=== PATIENT | female | born 1990 | race Caucasian/White ===

== ENCOUNTER 2018-03-12 11:16 | Inpatient (IN) | payer BC ==
--- OUTSIDE RECORDS SUMMARY | 2018-03-12 11:23 | XMS REPORT ---
:1990 Author Organization eClinicalWorks Care Team Providers Name Role Phone Mehdi Nickerson Provider Role Unavailable Allergies No Known Allergies Problems Problem Type Condition Code Onset Dates Condition Status Problem Uterine size-date discrepancy in O26.843 Active third trimester Assessment Encounter for supervision of normal Z34.03 Active first in third trimester Problem Encounter for supervision of normal Z34.03 Active first in third trimester Medications Medication Code Code Instructions Start End Status Dosage System Date Date Ferralet 90 [facility] [id number] 90-1 MG Orally Active 1 tablet Once a day CitraNatal 90 ND [id number] 90-1 & 300 MG Active as directed DHA Orally 1 Results No Known Results Summary Purpose eClinicalWorks Submission
--- OUTSIDE RECORDS SUMMARY | 2018-03-12 11:23 | XMS REPORT ---
[...] Status Dosage System Date Date Ferralet 90 [facility] [id number] 90-1 MG Orally Active 1 tablet Once a day CitraNatal 90 ND [id number] 90-1 & 300 MG Active as directed DHA Orally 1 Results No Known Results Immunizations Vaccine Administration Date TDAP > 7 Years-Adacel February 21, 2018 Summary Purpose eClinicalWorks Submission
--- OUTSIDE RECORDS SUMMARY | 2018-03-12 11:23 | XMS REPORT ---
[...] Start End Status Dosage System Date Date CitraNatal 90 [facility] [id number] 90-1 & 300 MG Active as directed DHA Orally 1 Ferralet 90 [facility] [id number] 90-1 MG Orally Active 1 tablet Once a day Results No Known Results Summary Purpose eClinicalWorks Submission
[2018-03-12] MEDS ORDERED: Ringers Lactate 1,000 ML IV ONE (12:03)
[2018-03-12] MEDS ORDERED: METHYLERGONOVINE 0.2MG/ML AMP IM PRN (12:08)
[2018-03-12] MEDS ORDERED: PROMETHAZINE 25 MG/ML VIAL IV PRN (12:08)
[2018-03-12] MEDS ORDERED: Ringers Lactate 1,000 ML IV PRN (12:08)
[2018-03-12] MEDS ORDERED: CARBOPROST TROME 250 MCG/ML IM PRN (12:08)
[2018-03-12] MEDS ORDERED: BUTORPHANOL 1 MG/ML INJ IV PRN (12:08)
[2018-03-12 12:45] LABS: RPR Titer ND
[2018-03-12 12:56] LABS: Urine Appearance CLEAR; Urine Bilirubin NEGATIVE (NEG); Urine Blood 3+ (NEG); Urine Color YELLOW; Urine Glucose NEGATIVE (NEG); Urine Protein NEGATIVE (NEG); Urine Specific Gravity 1.015 (1.005-1.030); Urine Urobilinogen 0.2 mg/dL (0.2-1.0); Urine pH 7.5 (5.0-7.0)
[2018-03-12] MEDS ORDERED: Ringers Lactate 1,000 ML IV SCH (13:00)
[2018-03-12 13:01] LABS: Absolute Lymphocytes (CBC) 1.7 K/uL (0.7-4.9); Absolute Monocytes 0.6 K/uL (0.1-1.3); Basophils % 0.2 % (0-1.3); Eosinophils % 0.2 % (0-4.4); Hematocrit 32.6 % (36.0-45.0); Lymphocytes % 13.7 % (15.3-44.8); MCH 30.4 pg (27.0-35.0); MPV 9.6 fL (7.6-11.3); Monocytes % 5.2 % (3.3-12.3); RBC Red Blood Cell Count 3.59 M/uL (3.86-4.86); Urine Microscopic Reflex ORDER UMIC
[2018-03-12] MEDS ORDERED: PROMETHAZINE 25 MG/ML VIAL ONE (13:07)
[2018-03-12] MEDS ORDERED: BUTORPHANOL 1 MG/ML INJ ONE (13:07)
[2018-03-12 13:10] LABS: Urine Bacteria <20 /HPF (<20); Urine Culture Reflex Order NOT NEEDED
[2018-03-12] MEDS ORDERED: OXYTOCIN/LR 20 UNIT/1,000 ML BAG IV SCH (14:00)
[2018-03-12] MEDS ORDERED: LIDOCAINE 2% INJ, 20 mL 20 ML ONE (15:02)
[2018-03-12] MEDS ORDERED: LIDOCAINE 1% 20 ML MDV ONE (16:34)
[2018-03-12] MEDS ORDERED: BISACODYL 10 MG RECTAL SUPP RECT PRN (17:01)
[2018-03-12] MEDS ORDERED: DOCUSATE NA/SENNA CONC 1 TAB PO PRN (17:01)
[2018-03-12] MEDS ORDERED: IBUPROFEN 200 MG TAB PO PRN (17:01)
[2018-03-12] MEDS ORDERED: ACETAMINOPHEN 500 MG TAB PO PRN (17:01)
[2018-03-12] MEDS ORDERED: ONDANSETRON 4 MG (ODT) TAB PO PRN (17:01)
[2018-03-12] MEDS ORDERED: METHYLERGONOVINE 0.2 MG TAB PO PRN (17:01)
[2018-03-12] MEDS ORDERED: Oxycodone HCl/Acetaminophen 1 TAB TAB PO PRN ×2 (17:01)
[2018-03-12 17:33] VITALS: BMI 24.4
--- NOTE | 2018-03-12 22:55 | P.OBGYNHP ---
Certification for Inpatient Patient admitted to: Inpatient With expected LOS: <2 Midnights Patient will require the following post-hospital care: None Practitioner: I am a practitioner with admitting privileges, knowledge of patient current condition, hospital course, and medical plan of care. Services: Services provided to patient in accordance with Admission requirements found in Title 42 Section 412.3 of the Code of Federal Regulations Patient History Date of Service: 03/19/18 Reason for admission: LABOR History of Present Illness: 28 y/o at 38 weeks and 4 days gestation presents in labor. She was seen previous in the morning and was not in labor at that time. She now presents with increasing pain, further dilation and consistent contractions. Allergies No Known Allergies Allergy (Unverified 03/20/17 03:24) Home Medications: Iron Carb,Gl/FA/B12/C/Docusate [Ferralet 90 Tablet] 1 tab PO DAILY 03/12/18 Pnv72/Iron,Carb&Glu/FA/Dss/Dha [Citranatal 90 Dha Combo Pack] 1 tab PO DAILY - Past Medical/Surgical History Diabetic: No Past Medical History: Reviewed- Non-Contributory Past Surgical History: Reviewed- Non-Contributory - Family History Family History: Reviewed- Non-Contributory - Social History Smoking Status: Former smoker Alcohol use: No CD- Drugs: No Caffeine use: Yes Place of Residence: Home Review of Systems 10-point ROS is otherwise unremarkable Physical Examination - Vital Signs Temperature: 97.8 F Blood Pressure: 105/57 Pulse: 89 Respirations: 18 - General General: Alert, Oriented x3, Moderate distress HEENT: Atraumatic Neck: Supple Respiratory: Normal air movement Cardiovascular: No edema, Normal pulses Capillary refill: <2 Seconds Breasts: Normal configuration, Normal contours, Symmetrical Gastrointestinal: Other (gravid) Musculoskeletal: No clubbing, No swelling, No contractures Integumentary: No rashes, No breakdown Neurological: Normal gait, Normal speech - Female Pelvic External genitalia: Normal Vagina: Normal, Empire, Moist Cervix: Normal, Dilation (6-7), Effacement (90%), station (-2) Uterus: Gravid Adnexa: Unable to evaluate - Obstetrics heart rate tracing: Category 2 Contractions: Frequency (every 2-4 minutes) Amniotic membrane: AROM (clear fluid) Laboratory Data (last 24 hrs) 03/12/18 12:08: WBC 12.3 H, Hgb 10.9 L, Hct 32.6 L, Plt Count 138 L Assessment and Plan - Plan 28 y/o [id number] 38 weeks 4 days gestation who presents in labor, GBS negative. Admit for management of labor. Patient declines epidural at this time. Discharge Plan: Home Plan to discharge in: 24 Hours - Advance Directives Does patient have a Living Will: No Does patient have a Durable POA for Healthcare: No
--- NOTE | 2018-03-12 23:04 | P.OP ---
Date of Service: 03/12/18 Findings and Operative Technique Patient delivered a viable female in cephalic presentation on 03/12/18 at 16:30. was delivered over a midline episiotomy via a vacuum assisted vaginal delivery in occiput posterior position. Once was delivered nose and mouth were suctioned with a suction bulb and cord was clamped and cut. Infant was placed on mother's abdomen for skin to skin bonding. Placenta was then delivered with gentle traction. Episiotomy was then repaired with a 2.0 and 3.0 vicryl in usual fashion. Fundus was firm. EBL was 300 cc. APGARS were 9/ 9. Weight was 6 lb 12 ounces. First stage of labor was 4 hours. Second stage was 1 hour and 6 minutes.
[2018-03-12 23:43] LABS: RPR (Rapid Plasma Reagin) NON-REACT (NON-REACT)
[2018-03-13 06:08] LABS: Absolute Monocytes 0.9 K/uL (0.1-1.3); Absolute Neutrophil 9.8 K/uL (1.8-8.0); Basophils % 0.4 % (0-1.3); Eosinophils % 0.3 % (0-4.4); Hematocrit 30.9 % (36.0-45.0); Lymphocytes % 21.9 % (15.3-44.8); MCH 30.2 pg (27.0-35.0); MCV 91.4 fL (80-100); MPV 9.2 fL (7.6-11.3); Monocytes % 6.7 % (3.3-12.3); RBC Red Blood Cell Count 3.39 M/uL (3.86-4.86)
[2018-03-15 03:43] LABS: HBsAG Nonreactive (Nonreactive)
[2018-03-19 15:53] VITALS: BP 105/57; TEMP 97.8
== END 2018-03-13 18:00 | disposition home or self-care (01) | DRG 775 ==
LOC: L&D 11:16 → 2ND-WC 12:01
PROVIDERS: ADMIT Student in an Organized Health Care Education/Training Program; ATTEND Student in an Organized Health Care Education/Training Program
PROC: 10D07Z6 Extraction of Products of Conception, Vacuum, Via Natural or Artificial Opening (ICD-10-PCS; principal; 2018-03-12)
PROC: 0W8NXZZ Division of Female Perineum, External Approach (ICD-10-PCS; 2018-03-12)
DX: O80 Encounter for full-term uncomplicated delivery (principal); Z3A.38 38 weeks gestation of pregnancy; Z37.0 Single live birth
CPT/HCPCS: 36415; 81003; 81015; 85025; 86592; 86901; 87340; 99218; J0595; J2210; J2550; J2590

== ENCOUNTER 2018-07-10 15:28 | Emergency (ER) | payer BC ==
--- OUTSIDE RECORDS SUMMARY | 2018-07-10 15:30 | XMS REPORT ---
[...] Status Dosage System Date Date Ferralet 90 [facility] [id number] 90-1 MG Orally Active 1 tablet Once a day CitraNatal 90 ND [id number] 90-1 & 300 MG Active as directed DHA Orally 1 Results No Known Results Summary Purpose eClinicalWorks Submission
--- OUTSIDE RECORDS SUMMARY | 2018-07-10 15:31 | XMS REPORT ---
[...] Status Dosage System Date Date CitraNatal 90 [facility] [id number] 90-1 & 300 MG Active as directed DHA Orally 1 Ferralet 90 [facility] [id number] 90-1 MG Orally Active 1 tablet Once a day Results No Known Results Summary Purpose eClinicalWorks Submission
--- OUTSIDE RECORDS SUMMARY | 2018-07-10 15:31 | XMS REPORT ---
:1990 Author Organization eClinicalWorks Care Team Providers Name Role Phone Mehdi Nickerson Provider Role Unavailable Allergies No Known Allergies Problems Problem Type Condition Code Onset Dates Condition Status Problem Uterine size-date discrepancy in O26.843 Active third trimester Problem Encounter for supervision of normal Z34.03 Active first in third trimester Medications No Known Medications Results No Known Results Summary Purpose eClinicalMiMedia Submission
--- OUTSIDE RECORDS SUMMARY | 2018-07-10 15:31 | XMS REPORT ---
[...] Dosage System Date Date Ferralet 90 [facility] [id number] 90-1 MG Orally Active 1 tablet Once a day CitraNatal 90 ND 03593035011 90-1 & 300 MG Active as directed DHA Orally 1 Results No Known Results Immunizations Vaccine Administration Date TDAP > 7 Years-Adacel February 21, 2018 Summary Purpose eClinicalWorks Submission
--- OUTSIDE RECORDS SUMMARY | 2018-07-10 15:31 | XMS REPORT ---
:1990 Author Organization eClinicalWorks Care Team Providers Name Role Phone Mehdi Nickerson Provider Role Unavailable Allergies No Known Allergies Problems Problem Type Condition Code Onset Dates Condition Status Problem Uterine size-date discrepancy in O26.843 Active third trimester Problem Encounter for supervision of normal Z34.03 Active first in third trimester Assessment Encounter for routine Z39.2 Active follow-up Medications Medication Code Code Instructions Start End Status Dosage System Date Date CitraNatal 90 ND [id number] 90-1 & 300 MG Active as directed DHA Orally 1 Ferralet 90 [facility] [id number] 90-1 MG Orally Active 1 tablet Once a day Results Name Result Date Reference Range Unit Abnormality Flag URINALYSIS AUTO W/O SCOPE (99722) ----NIT NEG 20180503 ----URO 0.2 20180503 ----PROTEIN NEG 20180503 ----pH 7.5 20180503 ----BLO NEG [id number] ----GLUCOSE NEG 20180503 ----ALCIDES NEG 20180503 ----BILIRUBIN NEG 20180503 ----KETONES NEG 20180503 ----SPECIFIC GRAVITY 1.020 20180503 Summary Purpose eClinicalWorks Submission
--- OUTSIDE RECORDS SUMMARY | 2018-07-10 15:31 | XMS REPORT ---
[...] Medications Results No Known Results Summary Purpose eClinicalTaking Point Submission
--- OUTSIDE RECORDS SUMMARY | 2018-07-10 15:31 | XMS REPORT ---
:1990 Author Organization eClinicalWorks Care Team Providers Name Role Phone Mehdi Nickerson Provider Role Unavailable Allergies, Adverse Reactions, Alerts Substance Reaction Event Type N.K.D.A. 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 [id number] 0.5 MG Orally Active 1 tablet at Once a day bedtime Ferralet [address] [facility] [id number] 90-1 MG Orally Active 1 tablet Once a day CitraNatal [address] [facility] [id number] 90-1 & 300 MG Active as directed DHA Orally 1 Results Name Result Date Reference Range Unit Abnormality Flag TEST URINE ----RESULTS neg [id number] URINALYSIS AUTO W/O SCOPE ([id number]) ----PROTEIN neg [id number] ----pH 6.5 20180523 ----NIT neg [id number] ----ALCIDES neg [id number] ----URO 0.2 20180523 ----SPECIFIC GRAVITY 1.020 20180523 ----BLO neg [id number] ----BILIRUBIN neg [id number] ----KETONES neg [id number] ----GLUCOSE neg [id number] Summary Purpose eClinicalWorks Submission
--- OUTSIDE RECORDS SUMMARY | 2018-07-10 15:31 | XMS REPORT ---
[...] Medications Results No Known Results Summary Purpose eClinicalAnzu Submission
--- OUTSIDE RECORDS SUMMARY | 2018-07-10 15:31 | XMS REPORT ---
[...] Medications Results No Known Results Summary Purpose eClinicalGuess Your Songs Submission
[2018-07-10 16:12] LABS: Absolute Lymphocytes (CBC) 2.4 K/uL (0.7-4.9); Absolute Monocytes 0.4 K/uL (0.1-1.3); Absolute Neutrophil 2.9 K/uL (1.8-8.0); Basophils % 0.5 % (0-1.3); Eosinophils % 0.9 % (0-4.4); Hematocrit 35.7 % (36.0-45.0); Lymphocytes % 41.3 % (15.3-44.8); MCH 31.2 pg (27.0-35.0); MCV 90.6 fL (80-100); MPV 9.3 fL (7.6-11.3); Monocytes % 7.3 % (3.3-12.3); RBC Red Blood Cell Count 3.94 M/uL (3.86-4.86)
[2018-07-10 16:50] LABS: BUN Blood Urea Nitrogen 11 mg/dL (7-18); Bicarbonate 24 mmol/L (21-32); Glucose Level 89 mg/dL (74-106); HCG, Quantitative 6728 mIU/mL (1-3); Potassium 3.4 mmol/L (3.5-5.1); Sodium Level 139 mmol/L (136-145)
[2018-07-10 17:00] LABS: Urine Blood TRACE (NEG); Urine Glucose NEGATIVE (NEG); Urine Protein NEGATIVE (NEG); Urine Specific Gravity 1.015 (1.005-1.030)
[2018-07-10 17:18] LABS: Urine Bacteria <20 /HPF (<20); Urine Culture Reflex Order NOT NEEDED; Urine RBC <5 /HPF (NONE SEEN)
--- NOTE | 2018-07-10 17:32 | ER ---
Nurse's Notes [facility] Name: Elizabeth Castaneda Age: 28 yrs Sex: Female : 1990 Arrival Date: 07/10/2018 Time: 15:31 Bed 25 Private MD: None, None Diagnosis: Threatened Presentation: 07/10 15:39 Presenting complaint: Patient states: vaginal bleeding started yesterday with a brown sv color and today is bright red. Pt is about 8 weeks . Transition of care: patient was not received from another setting of care. Onset of symptoms was July 09, 2018. Care prior to arrival: None. 15:39 Method Of Arrival: Ambulatory sv 15:39 Acuity: BILL 3 sv 17:56 Risk Assessment: Do you want to hurt yourself or someone else? Patient reports no aj1 desire to harm self or others. Initial Sepsis Screen: Does the patient meet any 2 criteria? No. Patient's initial sepsis screen is negative. Does the patient have a suspected source of infection? No. Patient's initial sepsis screen is negative. Triage Assessment: 15:39 General: Appears in no apparent distress. comfortable, well developed, Behavior is sv calm, cooperative, appropriate for age. Pain: Complains of pain in abdomen Pain currently is 1 out of 10 on a pain scale. Quality of pain is described as crampy, Pain began 1 day ago. EENT: No signs and/or symptoms were reported regarding the EENT system. Neuro: Level of Consciousness is awake, alert, obeys commands, Oriented to person, place, time, situation, Moves all extremities. Full function Gait is steady. Respiratory: Respiratory effort is even, unlabored, Respiratory pattern is regular, symmetrical. : Reports vaginal bleeding that is bright red, light flow. Derm: Skin is pink, warm \T\ dry. Musculoskeletal: Range of motion: intact in all extremities. 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 - Social history:: Smoking status: Patient/guardian denies using tobacco. - Ebola Screening: : No symptoms or risks identified at this time. - Family history:: not pertinent. - Hospitalizations: : No recent hospitalization is reported. Screenin:50 Abuse screen: Denies threats or abuse. Denies injuries from another. Nutritional aj1 screening: No deficits noted. Tuberculosis screening: No symptoms or risk factors identified. 17:56 Fall Risk None identified. aj1 Assessment: 15:50 Obstetrical Assessment: Patient reports back pain, vaginal bleeding. General: Appears aj1 in no apparent distress. uncomfortable, Behavior is calm, cooperative, appropriate for age. Pain: Complains of pain in back, right lower quadrant and left lower quadrant Pain does not radiate. Pain currently is 7 out of 10 on a pain scale. Quality of pain is described as sharp, Pain began 3 months ago Is continuous, Alleviated by rest, Aggravated by heavy lifting. Neuro: Level of Consciousness is awake, alert, obeys commands. Cardiovascular: Patient's skin is warm and dry. Respiratory: Airway is patent Respiratory effort is even, unlabored, Respiratory pattern is regular, symmetrical. GI: No signs and/or symptoms were reported involving the gastrointestinal system. : Reports vaginal bleeding that is bright red, moderate flow. EENT: No signs and/or symptoms were reported regarding the EENT system. Derm: No signs and/or symptoms reported regarding the dermatologic system. Skin is pink, warm \T\ dry. normal. Musculoskeletal: No signs and/or symptoms reported regarding the musculoskeletal system. Circulation, motion, and sensation intact. 16:45 Reassessment: Patient appears in no apparent distress at this time. No changes from aj1 previously documented assessment. Patient and/or family updated on plan of care and expected duration. Pain level reassessed. Patient is alert, oriented x 3, equal unlabored respirations, skin warm/dry/pink. 17:30 Reassessment: Patient appears in no apparent distress at this time. No changes from aj1 previously documented assessment. Patient and/or family updated on plan of care and expected duration. Pain level reassessed. Patient is alert, oriented x 3, equal unlabored respirations, skin warm/dry/pink. Vital Signs: 15:40 BP 110 / 62; Pulse 65; Resp 18; Temp 97.8; Pulse Ox 98% ; Weight 61.23 kg; Height 5 ft. sv 3 in. (160.02 cm); Pain 1/10; 17:35 BP 109 / 72; Pulse 53; Resp 16; Pulse Ox 98% on R/A; aj1 15:40 Body Mass Index 23.91 (61.23 kg, 160.02 cm) sv ED Course: 15:31 Patient arrived in ED. mr 15:31 None, None is Private Physician. mr 15:39 Triage completed. sv 15:41 Arm band placed on left wrist. Patient placed in an exam room, on a stretcher. sv 15:42 Peterson Chaves MD is Attending Physician. rn 15:42 Ameena Marc, YULIANA is Primary Nurse. aj1 15:50 Patient has correct armband on for positive identification. Bed in low position. Call aj1 light in reach. 15:50 No provider procedures requiring assistance completed. aj1 15:52 Radiology exam delayed due to lab results not completed at this time. test hr not completed at this time. 16:00 Inserted saline lock: 20 gauge in left antecubital area, using aseptic technique. rv 16:05 Quantitative Hcg Sent. ds4 16:05 Abo/rh Typing Sent. ds4 16:05 Basic Metabolic Panel Sent. ds4 16:05 CBC with Diff Sent. ds4 16:39 Urine Microscopic Only Sent. ds4 16:39 Quantitative Hcg Sent. ds4 16:39 Abo/rh Typing Sent. ds4 16:39 Basic Metabolic Panel Sent. ds4 16:41 Radiology exam delayed due to test not completed at this time. hr 17:15 Ultrasound completed. Patient tolerated well. Patient moved back from ultrasound. hr 17:15 US Transvaginal Ob In Process Unspecified. EDMS 17:55 IV discontinued, intact, bleeding controlled, No redness/swelling at site. Pressure aj1 dressing applied. Administered Medications: No medications were administered Outcome: 17:32 Discharge ordered by . rn 17:56 Discharged to home ambulatory. aj1 17:56 Condition: good 17:56 Discharge instructions given to patient, Instructed on discharge instructions, follow up and referral plans. Demonstrated understanding of instructions, follow-up care. 17:56 Patient left the ED. aj1 Signatures: Dispatcher [employer] EDPA Ameena Marc, RN RN Morena Walton, RN RN Iris Vasquez mr Jose Maria, Peterson Drake MD MD rn Swanson, Donovan ds4 Elkin Castillo, YULIANA RN rv
--- NOTE | 2018-07-10 17:32 | EDPHYS ---
Physician Documentation [facility] Name: Elizabeth Castaneda Age: 28 yrs Sex: Female : 1990 Arrival Date: 07/10/2018 Time: 15:31 Bed 25 Private MD: None, None ED Physician Peterson Chaves HPI: 07/10 15:49 This 28 yrs old Female presents to ER via Ambulatory with complaints of rn Vaginal Bleeding, + Preg <12wks. 15:49 The patient presents to the emergency department with vaginal bleeding, that is light, rn with no clots. The estimated gestational age is 8 weeks. Previous pregnancies: in previous pregnancies patient has had. The patient has experienced a previous episode. at 8 weeks by LMP presents with vaginal bleeding, ripsaw grader than a normal period, had a vaginal 3 months ago, no trauma, no urinary symptoms, no fever, no discharge. . 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 - Social history:: Smoking status: Patient/guardian denies using tobacco. - Ebola Screening: : No symptoms or risks identified at this time. - Family history:: not pertinent. - Hospitalizations: : No recent hospitalization is reported. ROS: 15:49 Constitutional: Negative for fever, chills, and weight loss, Eyes: Negative for injury, rn pain, redness, and discharge, Neck: Negative for injury, pain, and swelling, Cardiovascular: Negative for chest pain, palpitations, and edema, Respiratory: Negative for shortness of breath, cough, wheezing, and pleuritic chest pain, Abdomen/GI: Negative for nausea, vomiting, diarrhea, and constipation, : + vaginal bleeding MS/Extremity: Negative for injury and deformity, Skin: Negative for injury, rash, and discoloration, Neuro: Negative for headache, weakness, numbness, tingling, and seizure. 15:49 Constitutional: Positive for Exam: 15:49 Constitutional: This is a well developed, well nourished patient who is awake, alert, rn and in no acute distress. Eyes: Normal sclera and no pale conjunctivae Abdomen/GI: Soft, non-tender, with normal bowel sounds. No distension or tympany. No guarding or rebound. No evidence of tenderness throughout. Skin: Warm, dry with normal turgor. Normal color with no rashes, no lesions, and no evidence of cellulitis. MS/ Extremity: Pulses equal, no cyanosis. Neurovascular intact. Full, normal range of motion. Equal circumference. Neuro: Awake and alert, GCS 15, oriented to person, place, time, and situation. Cranial nerves II-XII grossly intact. Motor strength 5/5 in all extremities. Sensory grossly intact. Cerebellar exam normal. Normal gait. Vital Signs: 15:40 BP 110 / 62; Pulse 65; Resp 18; Temp 97.8; Pulse Ox 98% ; Weight 61.23 kg; Height 5 ft. sv 3 in. (160.02 cm); Pain 1/10; 17:35 BP 109 / 72; Pulse 53; Resp 16; Pulse Ox 98% on R/A; aj1 15:40 Body Mass Index 23.91 (61.23 kg, 160.02 cm) sv MDM: 15:42 Patient medically screened. rn 17:28 Differential diagnosis: ectopic . Data reviewed: vital signs, nurses notes, rim turning finisher test result(s), radiologic studies, ultrasound, and as a result, I will discharge patient. Counseling: I had a detailed discussion with the patient and/or guardian regarding: the historical points, exam findings, and any diagnostic results supporting the discharge/admit diagnosis, lab results, radiology results, the need for outpatient follow up, to return to the emergency department if symptoms worsen or persist or if there are any questions or concerns that arise at home. Response to treatment: the patient's symptoms have mildly improved after treatment, and as a result, I will admit patient. Special discussion: I discussed with the patient/guardian in detail that at this point there is no indication for admission to the hospital. It is understood, however, that if the symptoms persist or worsen the patient needs to return immediately for re-evaluation. Based on the history and exam findings, there is no indication for further emergent testing or inpatient evaluation. I discussed with the patient/guardian the need to see the OB Gyne specialist for further evaluation of the symptoms. ED course: + IUP, no definitive FHT noted but no evidence of ectopic. A+, will dc home with OB f/u for repeat beta and u/s. . 07/10 15:49 Order name: Quantitative Hcg; Complete Time: 17:04 rn 07/10 15:49 Order name: Abo/rh Typing; Complete Time: 16:49 rn 07/10 15:49 Order name: Basic Metabolic Panel; Complete Time: 17:04 rn 07/10 15:49 Order name: CBC with Diff; Complete Time: 16:29 rn 07/10 15:49 Order name: Urine Microscopic Only; Complete Time: 17:19 rn 07/10 16:40 Order name: Urine Dipstick--Ancillary (enter results); Complete Time: 17:04 ds4 07/10 15:49 Order name: Urine Test (obtain specimen); Complete Time: 16:45 rn 07/10 15:49 Order name: IV Saline Lock; Complete Time: 16:04 rn 07/10 15:49 Order name: Labs collected and sent; Complete Time: 16:04 rn 07/10 15:49 Order name: NPO; Complete Time: 16:01 rn 07/10 15:49 Order name: Urine Dipstick-Ancillary (obtain specimen); Complete Time: 16:39 rn 07/10 15:49 Order name: US Transvaginal Ob; Complete Time: 17:40 rn Administered Medications: No medications were administered Disposition: 07/10/18 17:32 Discharged to Home. Impression: Threatened . - Condition is Stable. - Discharge Instructions: Threatened Miscarriage, Vaginal Bleeding During , First Trimester. - Medication Reconciliation Form, Thank You Letter, Antibiotic Education, Prescription Opioid Use form. - Follow up: Private Physician; When: As needed; Reason: Recheck today's complaints, Re-evaluation by your physician. - Problem is new. - Symptoms are unchanged. Signatures: Dispatcher [employer] Ameena Friend RN RN aj1 Morena Black RN RN sv Peterson Chaves MD MD rn women services: (The following items were deleted from the chart) 17:56 17:32 07/10/2018 17:32 Discharged to Home. Impression: Threatened . Condition aj1 is Stable. Forms are Medication Reconciliation Form, Thank You Letter, Antibiotic Education, Prescription Opioid Use. Follow up: Private Physician; When: As needed; Reason: Recheck today's complaints, Re-evaluation by your physician. Problem is new. Symptoms are unchanged. rn
--- NOTE | 2018-07-10 17:39 | RAD REPORT ---
EXAM DESCRIPTION: US - Transvaginal OB - 07/10/2018 5:15 pm CLINICAL HISTORY: with vaginal bleeding COMPARISON: None. FINDINGS: The uterus measures 8 x 5 x 7 centimeters. A gestational sac is present within the endome trium. Within this is a yolk sac and pole with a crown-rump length .6 centimeters. Flicker of c ardiac activity is seen. However an accurate beats per minute could not be obtained. The ovaries are normal in size and echotexture. No significant free fluid is seen. IMPRESSION: Single live intrauterine with an estimated gestational age 6 weeks 2 days NICOLE 03/03/2019 . Flicker of cardiac activity seen. However an accurate beats per minute could not be obtained. Follow up endovaginal sonogram in 1 week would be helpful for re-evaluation
[2018-07-10 18:03] VITALS: TEMP 97.8; O2SAT 98
[2018-07-10 18:04] VITALS: BP 109/72
== END 2018-07-10 17:56 | disposition home or self-care (01) ==
LOC: ER 15:28
DX: O20.0 Threatened abortion (principal); Z3A.08 8 weeks gestation of pregnancy
CPT/HCPCS: 36415; 76817; 80048; 81003; 81015; 84702; 85025; 86900; 86901; 99284

== ENCOUNTER 2018-07-12 16:42 | Emergency (ER) | payer BC ==
--- OUTSIDE RECORDS SUMMARY | 2018-07-12 16:44 | XMS REPORT ---
[...] Status Dosage System Date Date Ferralet 90 [facility] [id number] 90-1 MG Orally Active 1 tablet Once a day CitraNatal 90 ND [id number] 90-1 & 300 MG Active as directed DHA Orally 1 Results No Known Results Summary Purpose eClinicalWorks Submission
--- OUTSIDE RECORDS SUMMARY | 2018-07-12 16:44 | XMS REPORT ---
[...] Status Dosage System Date Date CitraNatal 90 [facility] [id number] 90-1 & 300 MG Active as directed DHA Orally 1 Ferralet 90 [facility] [id number] 90-1 MG Orally Active 1 tablet Once a day Results No Known Results Summary Purpose eClinicalWorks Submission
--- OUTSIDE RECORDS SUMMARY | 2018-07-12 16:44 | XMS REPORT ---
[...] Dosage System Date Date Ferralet 90 [facility] [id number] 90-1 MG Orally Active 1 tablet Once a day CitraNatal 90 [place] [id number] 90-1 & 300 MG Active as directed DHA Orally 1 Results No Known Results Immunizations Vaccine Administration Date TDAP > 7 Years-Adacel February 21, 2018 Summary Purpose eClinicalWorks Submission
--- OUTSIDE RECORDS SUMMARY | 2018-07-12 16:45 | XMS REPORT ---
[...] End Status Dosage System Date Date Clonazepam [facility] [id number] 0.5 MG Orally Active 1 tablet at Once a day bedtime Ferralet 90 [facility] [id number] 90-1 MG Orally Active 1 tablet Once a day CitraNatal 90 [facility] 47559920803 90-1 & 300 MG Active as directed DHA Orally 1 Results Name Result Date Reference Range Unit Abnormality Flag TEST URINE ----RESULTS neg [id number] URINALYSIS AUTO W/O SCOPE (15755) ----PROTEIN neg [id number] ----pH 6.5 20180523 ----NIT neg [id number] ----ALCIDES neg [id number] ----URO 0.2 [id number] ----SPECIFIC GRAVITY 1.020 20180523 ----BLO neg [id number] ----BILIRUBIN neg [id number] ----KETONES neg [id number] ----GLUCOSE neg [id number] Summary Purpose eClinicalWorks Submission
--- OUTSIDE RECORDS SUMMARY | 2018-07-12 16:45 | XMS REPORT ---
[...] Medications Results No Known Results Summary Purpose eClinicalClifton Submission
--- OUTSIDE RECORDS SUMMARY | 2018-07-12 16:45 | XMS REPORT ---
[...] Medications Results No Known Results Summary Purpose eClinicalForever [facility] Submission
--- OUTSIDE RECORDS SUMMARY | 2018-07-12 16:45 | XMS REPORT ---
[...] Medications Results No Known Results Summary Purpose eClinicalNetspira Networks Submission
--- OUTSIDE RECORDS SUMMARY | 2018-07-12 16:45 | XMS REPORT ---
[...] Dosage System Date Date CitraNatal 90 ND [id number] 90-1 & 300 MG Active as directed DHA Orally 1 Ferralet 90 [facility] [id number] 90-1 MG Orally Active 1 tablet Once a day Results Name Result Date Reference Range Unit Abnormality Flag URINALYSIS AUTO W/O SCOPE (85767) ----NIT NEG [id number] ----URO 0.2 20180503 ----PROTEIN NEG 20180503 ----pH 7.5 20180503 ----BLO NEG 20180503 ----GLUCOSE NEG 20180503 ----ALCIDES NEG 20180503 ----BILIRUBIN NEG 20180503 ----KETONES NEG 20180503 ----SPECIFIC GRAVITY 1.020 20180503 Summary Purpose eClinicalWorks Submission
--- OUTSIDE RECORDS SUMMARY | 2018-07-12 16:45 | XMS REPORT ---
[...] Medications Results No Known Results Summary Purpose eClinicalPureForge Submission
--- NOTE | 2018-07-12 18:26 | ER ---
Nurse's Notes [facility] Name: Elizabeth Castaneda Age: 28 yrs Sex: Female : 1990 Arrival Date: 07/12/2018 Time: 16:44 Bed 17 Private MD: Diagnosis: Threatened Presentation: 07/12 16:52 Presenting complaint: Patient states: "I need my HCG level rechecked, I was seen here aa5 Monday". Transition of care: patient was not received from another setting of care. Onset of symptoms was June 2018. Risk Assessment: Do you want to hurt yourself or someone else? Patient reports no desire to harm self or others. Initial Sepsis Screen: Does the patient meet any 2 criteria? No. Patient's initial sepsis screen is negative. Does the patient have a suspected source of infection? No. Patient's initial sepsis screen is negative. Care prior to arrival: None. 16:52 Method Of Arrival: Ambulatory aa5 16:52 Acuity: BILL 4 aa5 Historical: - Allergies: 16:55 No Known Allergies; aa5 - PMHx: 16:55 Anxiety; Depression; HYPOGLYCEMIA; aa5 - PSHx: 16:55 None; aa5 - Immunization history:: Adult Immunizations. - Ebola Screening: : No symptoms or risks identified at this time. - Social history:: Smoking status: Patient/guardian denies using tobacco. Screenin:29 Abuse screen: Denies threats or abuse. Denies injuries from another. Nutritional aj screening: No deficits noted. Tuberculosis screening: No symptoms or risk factors identified. Fall Risk None identified. Assessment: 17:29 General: Appears in no apparent distress. comfortable, Behavior is calm, cooperative, aj appropriate for age. Pain: Denies pain. Neuro: Level of Consciousness is awake, alert, obeys commands, Oriented to person, place, time, situation, Appropriate for age. Respiratory: Airway is patent Respiratory effort is even, unlabored, Respiratory pattern is regular, symmetrical. : Reports vaginal bleeding that is. Derm: Skin is intact, is healthy with good turgor, Skin is pink, warm \\T\\ dry. normal. 18:43 Reassessment: Patient appears in no apparent distress at this time. No changes from aj previously documented assessment. Patient and/or family updated on plan of care and expected duration. Pain level reassessed. Patient is alert, oriented x 3, equal unlabored respirations, skin warm/dry/pink. Patient denies pain at this time. Vital Signs: 16:55 BP 104 / 68; Pulse 69; Resp 18 S; Temp 97.8(TE); Pulse Ox 97% on R/A; aa5 18:43 BP 110 / 69; Pulse 72; Resp 18; Pulse Ox 99% on R/A; aj ED Course: 16:44 Patient arrived in ED. mr 16:50 Madeline Harrell FNP-C is PHCP. snw 16:50 Donnie Benitez MD is Attending Physician. snw 16:50 Arm band placed on. aa5 16:54 Triage completed. aa5 17:17 Petrona Ordonez, RN is Primary Nurse. aj 17:29 Patient has correct armband on for positive identification. aj 17:29 No provider procedures requiring assistance completed. Initial lab(s) drawn, by or, aj sent to lab. Patient did not have IV access during this emergency room visit. 18:25 Elvia Nickerson MD is Referral Physician. snw Administered Medications: No medications were administered Outcome: 18:25 Discharge ordered by . snw 18:43 Discharged to home ambulatory. aj 18:43 Condition: good 18:43 Discharge instructions given to patient, Instructed on discharge instructions, follow up and referral plans. Demonstrated understanding of instructions, follow-up care. 18:44 Patient left the ED. aj Signatures: Petrona Ordonez, RN RN Madeline Garland FNP-C FNP-Iris Rogers mr AndrewsGinny RN RN aa5 Corrections: (The following items were deleted from the chart) 18:17 17:29 : No signs and/or symptoms were reported regarding the genitourinary system. aj aj
--- NOTE | 2018-07-12 18:27 | EDPHYS ---
Physician Documentation [facility] Name: Elizabeth Castaneda Age: 28 yrs Sex: Female : 1990 Arrival Date: 07/12/2018 Time: 16:44 Bed 17 Private MD: ED Physician Donnie Benitez HPI: 07/12 17:24 This 28 yrs old Female presents to ER via Ambulatory with complaints of HCG snw level recheck. 17:24 The patient presents with here Tues for HCG and eval. + intrauterine , Rh+. snw Onset: The symptoms/episode began/occurred gradually. Modifying factors: The symptoms are alleviated by nothing. Associated signs and symptoms: Pertinent positives: vaginal bleeding. Severity of symptoms: At their worst the symptoms were mild, moderate. The patient's method of control includes nothing. The patient has experienced a previous episode, approximately 2 days ago. The patient has been recently seen by a physician: The patient has been recently seen at the [facility] Emergency Department, this week, for similar complaints. here for repeat QHcg. Historical: - Allergies: 16:55 No Known Allergies; aa5 - PMHx: 16:55 Anxiety; Depression; HYPOGLYCEMIA; aa5 - PSHx: 16:55 None; aa5 - Immunization history:: Adult Immunizations. - Ebola Screening: : No symptoms or risks identified at this time. - Social history:: Smoking status: Patient/guardian denies using tobacco. ROS: 17:23 Constitutional: Negative for fever, chills, and weight loss, Eyes: Negative for injury, snw pain, redness, and discharge, ENT: Negative for injury, pain, and discharge, Neck: Negative for injury, pain, and swelling, Cardiovascular: Negative for chest pain, palpitations, and edema, Respiratory: Negative for shortness of breath, cough, wheezing, and pleuritic chest pain, Abdomen/GI: Negative for abdominal pain, nausea, vomiting, diarrhea, and constipation, Back: Negative for injury and pain, MS/Extremity: Negative for injury and deformity, Skin: Negative for injury, rash, and discoloration, Neuro: Negative for headache, weakness, numbness, tingling, and seizure, Psych: Negative for depression, anxiety, suicide ideation, homicidal ideation, and hallucinations. 17:23 : Positive for vaginal bleeding, bright red, fluctuates based on activity. . Exam: 17:23 Constitutional: This is a well developed, well nourished patient who is awake, alert, snw and in no acute distress. Head/Face: Normocephalic, atraumatic. Eyes: Pupils equal round and reactive to light, extra-ocular motions intact. Lids and lashes normal. Conjunctiva and sclera are non-icteric and not injected. Cornea within normal limits. Periorbital areas with no swelling, redness, or edema. ENT: Nares patent. No nasal discharge, no septal abnormalities noted. Tympanic membranes are normal and external auditory canals are clear. Oropharynx with no redness, swelling, or masses, exudates, or evidence of obstruction, uvula midline. Mucous membranes moist. Neck: Trachea midline, no thyromegaly or masses palpated, and no cervical lymphadenopathy. Supple, full range of motion without nuchal rigidity, or vertebral point tenderness. No Meningismus. Chest/axilla: Normal chest wall appearance and motion. Nontender with no deformity. No lesions are appreciated. Cardiovascular: Regular rate and rhythm with a normal S1 and S2. No gallops, murmurs, or rubs. Normal PMI, no JVD. No pulse deficits. Respiratory: Lungs have equal breath sounds bilaterally, clear to auscultation and percussion. No rales, rhonchi or wheezes noted. No increased work of breathing, no retractions or nasal flaring. Abdomen/GI: Soft, non-tender, with normal bowel sounds. No distension or tympany. No guarding or rebound. No evidence of tenderness throughout. Back: No spinal tenderness. No costovertebral tenderness. Full range of motion. Skin: Warm, dry with normal turgor. Normal color with no rashes, no lesions, and no evidence of cellulitis. MS/ Extremity: Pulses equal, no cyanosis. Neurovascular intact. Full, normal range of motion. Neuro: Awake and alert, GCS 15, oriented to person, place, time, and situation. Cranial nerves II-XII grossly intact. Motor strength 5/5 in all extremities. Sensory grossly intact. Cerebellar exam normal. Normal gait. Psych: Awake, alert, with orientation to person, place and time. Behavior, mood, and affect are within normal limits. Vital Signs: 16:55 BP 104 / 68; Pulse 69; Resp 18 S; Temp 97.8(TE); Pulse Ox 97% on R/A; aa5 18:43 BP 110 / 69; Pulse 72; Resp 18; Pulse Ox 99% on R/A; aj MDM: 17:06 Patient medically screened. snw 18:24 Data reviewed: vital signs, nurses notes. Data interpreted: Pulse oximetry: on room air snw is 97 %. Interpretation: normal. Counseling: I had a detailed discussion with the patient and/or guardian regarding: the historical points, exam findings, and any diagnostic results supporting the discharge/admit diagnosis, lab results, the need for outpatient follow up, to return to the emergency department if symptoms worsen or persist or if there are any questions or concerns that arise at home. Physician consultation: Elvia Nickerson MD was called at 18:24, was contacted at 18:24, regarding patient's condition, outpatient follow-up, and will see patient in office, in 2-3 days, would like further tests performed, Progesterone level. 18:27 Response to treatment: There is no appreciated change of the patient's symptoms at this snw time, and as a result, I will discharge patient, to f/u with Dr. Nickerson, IUP, Rh+ Mom, no heavy bleeding. 07/12 17:07 Order name: HCG-Quantitative; Complete Time: 18:12 snw Administered Medications: No medications were administered Disposition: 19:00 Co-signature as Attending Physician, Donnie Benitez MD I agree with the assessment and kdr plan of care. Disposition: 07/12/18 18:25 Discharged to Home. Impression: Threatened . - Condition is Stable. - Discharge Instructions: Threatened Miscarriage, First Trimester of , Pelvic Rest. - Medication Reconciliation Form, Thank You Letter, Antibiotic Education, Prescription Opioid Use form. - Follow up: Elvia Nickerson MD; When: 2 - 3 days; Reason: Recheck today's complaints, Continuance of care, Re-evaluation by your physician. Follow up: Emergency Department; When: As needed; Reason: Worsening of condition. - Notes: Please call Dr. Nickerson's office in am to make appt for Monday. Return to ED for worsening symptoms, concerns, problems Signatures: Dispatcher [employer] EDPetrona Calvo RN RN aj Rittger, Kevin, MD MD kdr Madeline Harrell, BENEFITS PROCESSOR-C BENEFITS PROCESSOR-Csnw Ginny Andrews, RN RN aa5 Corrections: (The following items were deleted from the chart) 18:26 18:25 07/12/2018 18:25 Discharged to Home. Impression: Threatened . Condition snw is Stable. Forms are Medication Reconciliation Form, Thank You Letter, Antibiotic Education, Prescription Opioid Use. Follow up: [facility]; When: 2 - 3 days; Reason: Recheck today's complaints, Continuance of care, Re-evaluation by your physician. snw 18:44 18:26 07/12/2018 18:25 Discharged to Home. Impression: Threatened . Condition aj is Stable. Forms are Medication Reconciliation Form, Thank You Letter, Antibiotic Education, Prescription Opioid Use. Follow up: [facility]; When: 2 - 3 days; Reason: Recheck today's complaints, Continuance of care, Re-evaluation by your physician. Follow up: Emergency Department; When: As needed; Reason: Worsening of condition. snw
[2018-07-12 19:26] VITALS: TEMP 97.8
[2018-07-12 19:27] VITALS: BP 110/69; O2SAT 99
== END 2018-07-12 18:44 | disposition home or self-care (01) ==
LOC: ER 16:42
DX: O20.0 Threatened abortion (principal); Z3A.00 Weeks of gestation of pregnancy not specified
CPT/HCPCS: 36415; 84144; 84702; 99283